=== PATIENT | female | born 1930 | race Hispanic/Latino ===

== ENCOUNTER → 2017-11-12 | Outpatient (CLI) | payer OTHER, MEDICARE ==
[~2017-11-12] MED LIST: ACET-2900 PO; ALEN70TA2 PO; ALPR0.25 PO; ATEN100T PO; ATOR20TA65 PO; BENZ-17 PO; CALC-877 PO; CHOL-9 PO; DEXT1DRO OP; DIPH25CA85 PO; DULO30CA2 PO; ESTR1TAB21 PO; GUAI237L82 PO; GUAI600T50 PO; HYDR25SU38 RC; HYDR26CR TP; LACT10SO32 PO; LACT10SO9 PO; LAMO25TA66 PO; LORA10TA7 PO; LOSA100T29 PO; METF500T6 PO; MOM30 PO; MULT-1192 PO; MULT-685 PO; NAPR-1180 PO; NYST15CR TP; NYST15CR2 TP; OMEP20TA25 PO; POLY119P2 PO; PROCTOCM PR; PSYL0.525 PO; RISP1TAB89 PO; RIVA1PAT3 TD; RIVA9.5T TD; SERT50TA PO; TEMO15O TP; TRAM50TA4 PO; VIT1CAPS49 PO; ZINC56.7 TP; ZIPR20CA2 PO; [UNRECOGNIZED DRUG - CODE] TP; mylanta PO
== END | disposition home or self-care (01) ==
LOC: RAH 09:39
PROVIDERS: ATTEND Family Medicine
DX: R10.9 Unspecified abdominal pain (principal)
CPT/HCPCS: 76700; 76856

== ENCOUNTER 2017-12-08 17:17 | Observation (INO) | payer OTHER, MEDICARE ==
[~2017-12-08] VITALS: Ht 124.5 cm; Wt 73.5 kg
[~2017-12-08 17:17] MED LIST changes: -BENZ-17 PO; -CHOL-9 PO; -DIPH25CA85 PO; -DULO30CA2 PO; -GUAI237L82 PO; -LACT10SO9 PO; -MULT-685 PO; -NAPR-1180 PO; -NYST15CR TP; -NYST15CR2 TP; -OMEP20TA25 PO; -ZIPR20CA2 PO
[2017-12-08 17:38] LABS: BASOPHILS % (AUTO) 4.2 % (0.0-5.0); EOSINOPHILS % (AUTO) 1.7 % (0.0-8.0); LYMPHOCYTES % (AUTO) 21.1 % (21.0-51.0); MEAN CORPUSCULAR HEMOGLOBIN 21.5 pg (27.0-33.0); MEAN CORPUSCULAR HGB CONC 31.3 g/dL (32.0-36.0); MEAN CORPUSCULAR VOLUME 68.6 fL (79-99); MONOCYTES % (AUTO) 10.8 % (3.0-13.0); NEUTROPHILS % (AUTO) 62.2 % (40.0-77.0); NUCLEATED RED BLOOD CELLS 0.1 % (0.0-0.19); PLATELET COUNT (AUTO) 379 K/uL (130-400); RED BLOOD CELL COUNT(AUTO) 4.51 MIL/uL (4.00-5.50); RED CELL DISTRIBUTION WIDTH 18.8 % (11.0-15.5); WHITE BLOOD COUNT (AUTO) 9.2 K/uL (4.8-10.8)
[2017-12-08] MEDS ORDERED: ONDANSETRON HCL 4 MG/2 ML VIAL ONE (17:42)
[2017-12-08] MEDS ORDERED: MORPHINE SULFATE 4 MG/1ML SYG ONE (17:43)
[2017-12-08 17:47] LABS: BILIRUBIN,URINE Negative (NEGATIVE); COLOR,URINE Yellow (YELLOW); GLUCOSE, URINE (UA) Negative (NEGATIVE); KETONES,URINE Negative (NEGATIVE); LEUKOCYTE ESTERASE ,URINE Negative (NEGATIVE); NITRATE,URINE Negative (NEGATIVE); OCCULT BLOOD,URINE Negative (NEGATIVE); PROTEIN,URINE Negative (NEGATIVE); UROBILINOGEN,URINE 0.2 mg/dL (0.2-1.0)
[2017-12-08 17:48] LABS: APPEARANCE,URINE CLEAR (CLEAR)
[2017-12-08 17:49] LABS: CREATININE 0.7 mg/dL (0.5-1.5); INR 1.02 (0.85-1.15); PARTIAL THROMBOPLASTIN TIME 23.9 SEC (26.3-35.5); POTASSIUM 4.4 mmol/L (3.5-5.1); PROTHROMBIN TIME 10.7 SEC (9.6-11.6)
[2017-12-08 17:54] LABS: BILIRUBIN,TOTAL 0.3 mg/dL (0.2-1.0); TOTAL PROTEIN, SERUM 7.5 g/dL (6.0-8.3)
[2017-12-08] MEDS ORDERED: IOPAMIDOL-370 75 ML VIAL IV ONE (17:54)
[2017-12-08 18:02] LABS: CREATINE KINASE MB 1.9 ng/mL (0.5-3.6)
[2017-12-08] MEDS ORDERED: KETOROLAC TROMETHAMINE 15MG/ML ONE (20:17)
[2017-12-08] MEDS ORDERED: METRONIDAZOLE 500MG/100ML BAG 100 ML ONE (20:39)
[2017-12-08] MEDS: METRONIDAZOLE 500MG/100ML BAG 100 ML IVPB SCH (21:00)
[2017-12-08] MEDS: LEVOFLOXACIN 500 MG/D5W 100 ML 100 ML IV SCH (21:00)
[2017-12-08] MEDS ORDERED: LORAZEPAM 2 MG/ML 1 ML VIAL ONE (21:14)
[2017-12-08] MEDS ORDERED: MORPHINE SULFATE 4 MG/1ML SYG IVP PRN (21:15)
[2017-12-08] MEDS ORDERED: SODIUM CHLORIDE 0.9% 1000ML 1,000 ML IV ONE (21:56)
[2017-12-08] MEDS ORDERED: LEVOFLOXACIN 500 MG/D5W 100 ML 100 ML ONE (21:56)
[2017-12-08] MEDS ORDERED: HYDRALAZINE HCL 20 MG/ML VIAL ONE (23:11)
[2017-12-08] MEDS ORDERED: SODIUM CHLORIDE 0.9% 1000ML 1,000 ML IV SCH (23:28)
[2017-12-08] MEDS ORDERED: ONDANSETRON HCL MDV 20ML 2 MG/ML VIAL IV PRN (23:30)
[2017-12-08] MEDS ORDERED: LIDOCAINE HCL-MPF 1% 2ML VIAL IVP PRN (23:30)
[2017-12-08] MEDS ORDERED: LEVOFLOXACIN 500 MG/D5W 100 ML 100 ML IV SCH (23:30)
[2017-12-08] MEDS ORDERED: METRONIDAZOLE 500MG/100ML BAG 100 ML IV SCH (23:30)
[2017-12-08] MEDS ORDERED: MORPHINE SULFATE 2 MG/ML 1ML SYG IV PRN (23:30)
[2017-12-08] MEDS ORDERED: POTASSIUM CHLORIDE 20 MEQ ERTAB PO PRN (23:30)
[2017-12-08] MEDS ORDERED: POTASSIUM CHLORIDE 10% ELIXIR 20 MEQ/15 ML UDCUP PO PRN (23:30)
[2017-12-08] MEDS ORDERED: POTASSIUM CHLORIDE 20MEQ/100ML 100 ML IV PRN (23:30)
[2017-12-08 23:50] VITALS: BP 144/85
[2017-12-09] MEDS: MORPHINE SULFATE 4 MG/1ML SYG IVP PRN ×3 (01:36→14:43)
[2017-12-09] MEDS ORDERED: NYST15CR2 TP (02:08)
[2017-12-09] MEDS ORDERED: LACT10SO9 PO (02:13)
[2017-12-09] MEDS ORDERED: MULT-685 PO (02:13)
[2017-12-09] MEDS ORDERED: GUAI237L82 PO (02:13)
[2017-12-09 03:00] VITALS: BP 122/68
[2017-12-09] MEDS: KETOROLAC TROMETHAMINE 15MG/ML IV PRN (03:21)
[2017-12-09] MEDS: METRONIDAZOLE 500MG/100ML BAG 100 ML IVPB SCH ×3 (04:58→20:53)
[2017-12-09 05:49] LABS: HEMATOCRIT 28.1 % (36-48); MEAN CORPUSCULAR HEMOGLOBIN 22.7 pg (27.0-33.0); MEAN CORPUSCULAR HGB CONC 33.2 g/dL (32.0-36.0); MEAN CORPUSCULAR VOLUME 68.4 fL (79-99); PLATELET COUNT (AUTO) 375 K/uL (130-400); RED BLOOD CELL COUNT(AUTO) 4.11 MIL/uL (4.00-5.50); WHITE BLOOD COUNT (AUTO) 8.6 K/uL (4.8-10.8)
[2017-12-09 05:54] LABS: CREATININE 0.8 mg/dL (0.5-1.5); POTASSIUM 3.5 mmol/L (3.5-5.1)
[2017-12-09 08:06] VITALS: BP 169/81
[2017-12-09] MEDS: FAMOTIDINE/PF 20 MG/2 ML VIAL IV SCH ×3 (09:44→20:53)
[2017-12-09] MEDS: PANTOPRAZOLE SODIUM 40 MG TABLET.DR PO SCH (09:44)
[2017-12-09] MEDS: SODIUM CHLORIDE 0.9% 1000ML 1,000 ML IV SCH ×2 (09:45→13:28)
[2017-12-09 11:26] VITALS: BP 199/97
[2017-12-09] MEDS ORDERED: NYSTATIN-TRIAMCINOLONE CREAM 15 GM TP PRN (12:00)
[2017-12-09] MEDS ORDERED: GUAIFENESIN 600 MG TABLET.ER PO PRN (12:00)
[2017-12-09] MEDS ORDERED: LORATADINE 10 MG TABLET PO PRN (12:00)
[2017-12-09] MEDS ORDERED: GUAIFENESIN-DM 200/20 MG 10 ML PO PRN (12:00)
[2017-12-09] MEDS ORDERED: MAGNESIUM HYDROXIDE 30 ML/UDCUP PO PRN (12:00)
[2017-12-09] MEDS ORDERED: ACETAMINOPHEN EXTENDED RELEASE 650 MG TABLET PO PRN (12:00)
[2017-12-09] MEDS ORDERED: TRAMADOL HCL 50 MG TABLET PO PRN (12:00)
[2017-12-09] MEDS ORDERED: DULO30CA2 PO (12:49)
[2017-12-09] MEDS ORDERED: BENZ-17 PO (12:49)
[2017-12-09] MEDS ORDERED: DIPH25CA85 PO (12:49)
[2017-12-09] MEDS ORDERED: OMEP20TA25 PO (12:49)
[2017-12-09] MEDS ORDERED: CHOL-9 PO (12:49)
[2017-12-09] MEDS ORDERED: ZIPR20CA2 PO (12:49)
[2017-12-09] MEDS ORDERED: NAPR-1180 PO (12:49)
[2017-12-09] MEDS ORDERED: NYST15CR TP (12:49)
[2017-12-09] MEDS ORDERED: DIPHENHYDRAMINE HCL 25 MG CAPSULE PO PRN (13:00)
[2017-12-09] MEDS ORDERED: NAPROXEN 500 MG TABLET PO PRN (13:00)
[2017-12-09] MEDS ORDERED: BENZONATATE 100 MG CAPSULE PO PRN (13:00)
[2017-12-09] MEDS ORDERED: NYSTATIN 30 GM CREAM.GM. TP PRN (13:00)
[2017-12-09] MEDS ORDERED: ACETAMINOPHEN 325 MG TAB PO PRN (13:15)
[2017-12-09] MEDS: HYDRALAZINE HCL 20 MG/ML VIAL IV PRN ×2 (13:21→20:51)
[2017-12-09] MEDS: ALPRAZOLAM 0.25 MG TABLET PO SCH ×2 (14:15→20:52)
[2017-12-09] MEDS ORDERED: ALPRAZOLAM 0.25 MG TABLET ONE (14:28)
[2017-12-09] MEDS: ARTIFICAL TEARS SOL 15 ML OP SCH ×2 (14:33→21:00)
[2017-12-09 16:27] VITALS: BP 163/70
[2017-12-09 20:00] VITALS: BP 185/77
[2017-12-09] MEDS: ZINC OXIDE OINT 60GM TUBE TP SCH (20:52)
[2017-12-09] MEDS: LAMOTRIGINE 25 MG TAB PO SCH (20:52)
[2017-12-09] MEDS: CALCIUM 500 + VITAMIN D 200 TABLET PO SCH (20:53)
[2017-12-09] MEDS: ZIPRASIDONE HCL 20 MG CAPSULE PO SCH (20:53)
[2017-12-09] MEDS: LEVOFLOXACIN 500 MG/D5W 100 ML 100 ML IV SCH (20:54)
[2017-12-09] MEDS ORDERED: ALPRAZOLAM 0.25 MG TABLET PO SCH (21:00)
[2017-12-10] VITALS: BP 173/82
[2017-12-10] MEDS: KETOROLAC TROMETHAMINE 15MG/ML IV PRN ×2 (00:33→09:51)
[2017-12-10] MEDS: SODIUM CHLORIDE 0.9% 1000ML 1,000 ML IV SCH (00:34)
[2017-12-10 04:48] VITALS: BP 179/83
[2017-12-10] MEDS: METRONIDAZOLE 500MG/100ML BAG 100 ML IVPB SCH (05:46)
[2017-12-10 07:07] VITALS: BP 162/88
[2017-12-10] MEDS ORDERED: RIVASTIGMINE TP SCH (09:00)
[2017-12-10] MEDS ORDERED: CHOLECALCIFEROL 10000 UNIT PO SCH (09:00)
[2017-12-10] MEDS ORDERED: PANTOPRAZOLE SODIUM 40 MG TABLET.DR PO SCH (09:00)
[2017-12-10] MEDS ORDERED: ATORVASTATIN CALCIUM 20 MG TABLET PO SCH (09:00)
[2017-12-10] MEDS ORDERED: SIMETHICONE 80 MG TAB.CHEW PO SCH (09:00)
[2017-12-10] MEDS ORDERED: PSYLLIUM HUSK PO PRN (09:00)
[2017-12-10] MEDS ORDERED: NON-FORMULARY MEDICATION 1 EACH (Multivitamin (Multi-Vitamin Daily) 1 EACH) PO SCH (09:00)
[2017-12-10] MEDS ORDERED: POLYETHYLENE GLYCOL 3350 17 GM POWD.PACK PO PRN (09:00)
[2017-12-10] MEDS ORDERED: LACTULOSE 20 GM/30 ML UDCUP PO SCH (09:00)
[2017-12-10] MEDS ORDERED: LOSARTAN 100 MG TABLET PO SCH (09:00)
[2017-12-10] MEDS ORDERED: AMLODIPINE BESYLATE 5 MG TAB PO SCH (09:00)
[2017-12-10] MEDS ORDERED: METFORMIN HCL 500 MG TABLET PO SCH (09:00)
[2017-12-10] MEDS ORDERED: DULOXETINE HCL 30 MG CAP PO SCH (09:00)
[2017-12-10] MEDS ORDERED: ATENOLOL 50 MG TABLET PO SCH (09:00)
[2017-12-10] MEDS ORDERED: MULTIVITAMIN WITH MINERALS TABLET PO SCH (09:00)
[2017-12-10] MEDS: LAMOTRIGINE 25 MG TAB PO SCH (09:39)
[2017-12-10] MEDS: FAMOTIDINE/PF 20 MG/2 ML VIAL IV SCH (09:39)
[2017-12-10] MEDS: ZINC OXIDE OINT 60GM TUBE TP SCH (09:39)
[2017-12-10] MEDS: CALCIUM 500 + VITAMIN D 200 TABLET PO SCH (09:40)
[2017-12-10] MEDS: ZIPRASIDONE HCL 20 MG CAPSULE PO SCH (09:40)
[2017-12-10] MEDS: PANTOPRAZOLE SODIUM 40 MG TABLET.DR PO SCH (09:40)
[2017-12-10] MEDS: ALPRAZOLAM 0.25 MG TABLET PO SCH (09:41)
[2017-12-10] MEDS: ARTIFICAL TEARS SOL 15 ML OP SCH (09:41)
[2017-12-10 11:08] VITALS: BP 191/96
[2017-12-10 16:33] VITALS: BP 164/72
== END 2017-12-10 17:17 ==
LOC: EDH 17:17 → EDHIP 20:35 → 3CH 23:18
PROVIDERS: ADMIT Internal Medicine; ATTEND Internal Medicine
DX: R10.9 Unspecified abdominal pain (principal); E11.9 Type 2 diabetes mellitus without complications; I10 Essential (primary) hypertension; I16.0 Hypertensive urgency; D50.9 Iron deficiency anemia, unspecified; D63.8 Anemia in other chronic diseases classified elsewhere; E78.5 Hyperlipidemia, unspecified; E87.1 Hypo-osmolality and hyponatremia; F03.90 Unspecified dementia, unspecified severity, without behavioral disturbance, psychotic disturbance, mood disturbance, and anxiety; M19.90 Unspecified osteoarthritis, unspecified site
CPT/HCPCS: 36415 ×2; 71045; 73502; 74177; 76705; 80048; 80053; 81003; 82270; 82550; 82553; 84484; 85025; 85027; 85378; 85610; 85730; 87088; 93005; 96361; 96365; 96366 ×2; 96368; 96375; 96376 ×2; 99285; G0378 ×45; J0360 ×3; J1885 ×4; J1956 ×2; J2060; J2270 ×4; J2405; J3490 ×8; J7030; Q0163; Q9967